=== PATIENT | male | born 1950 | race Hispanic/Latino ===

== ENCOUNTER 2019-11-28 15:02 | Observation (INO) | payer MEDICARE, BC ==
[~2019-11-28] VITALS: Ht 175.3 cm; Wt 88.5 kg
--- OUTSIDE RECORDS SUMMARY | 2019-11-28 15:04 | XMS REPORT ---
Author Author [facility] Address Unknown Phone Unavailable Care Team Providers Care Technology Program Manager Name Role Phone Unavailable Unavailable Payers Payer Name Policy Type Policy Number Effective Date Expiration Date Problems This patient has no known problems. Allergies, Adverse Reactions, Alerts This patient has no known allergies or adverse reactions. Medications This patient has no known medications.
[2019-11-28] MEDS ORDERED: ASPIRIN 81 MG CHEW TAB PO ONE (16:00)
--- NOTE | 2019-11-28 16:55 | Diagnostic Imaging Report ---
CT BRAIN WO HISTORY: Dizziness COMPARISON: None. Technique: Noncontrast axial scans were obtained from skull base to the vertex. Coronal and sagittal reconstructions obtained from the axial data. One or more of the following dose reduction techniques were used: Automated exposure control, adjustment of the mA and/or kV according to patient size, and/or utilization of iterative reconstruction technique. DISCUSSION: Scalp/Skull: Unremarkable. Brain sulci: Mildly prominent. Ventricles: Compensatory dilatation. Extra-axial spaces: No masses or fluid collections. Carotid siphon calcifications are present. Parenchyma: Mild bilateral deep white matter hypodensity is likely chronic microvascular ischemic change. A few punctate cortical calcifications along the right parieto-occipital convexity may be from remote infection or inflammation. Otherwise, no masses, hemorrhage, or large vascular territory acute infarct. Dural sinuses: No abnormal densities. Sellar/Suprasellar region: Intact. Skull base: Intact. Incidental findings: None. IMPRESSION: 1. No acute intracranial abnormalities. 2. Mild supratentorial chronic microvascular ischemic change. Mild generalized cerebral volume loss. 3. A few punctate cortical calcifications along the right parieto-occipital convexity may be from remote infection or inflammation. Signed by: Dr. Jamie Jacobs M.D. on 11/28/2019 4:52 PM
--- NOTE | 2019-11-28 17:08 | Diagnostic Imaging Report ---
EXAMINATION: CHEST SINGLE (PORTABLE) INDICATION: Near syncope COMPARISON: None FINDINGS: LINES/TUBES:None LUNGS:The lungs are well-inflated. No focal consolidation or pulmonary edema. PLEURA:No pleural effusion or pneumothorax. MEDIASTINUM:The cardiomediastinal silhouette appears normal in size and shape. Atherosclerotic calcifications of the thoracic aorta. BONES/SOFT TISSUES:No acute osseous injury. Sternotomy wires intact. ABDOMEN:No free air. IMPRESSION: No focal pneumonia or pulmonary edema. Signed by: Teressa Herrera MD on 11/28/2019 5:06 PM
[2019-11-28 17:09] LABS: BASOPHILS % 0.3 % (0.0-1.0); EOSINOPHILS # (AUTO) 0.1 (0.0-0.4); HEMATOCRIT 42.8 % (38.2-49.6); HEMOGLOBIN 14.1 g/dL (14.0-18.0); LYMPHOCYTES # (AUTO) 1.6 (1.0-3.2); MEAN CORPUSCULAR HEMOGLOBIN 28.1 pg (28-32); MEAN CORPUSCULAR HGB CONC 32.9 g/dL (31-35); MEAN CORPUSCULAR VOLUME 85.3 fL (81-99); MONOCYTES # (AUTO) 0.7 (0.2-0.8); MONOCYTES % 8.1 % (4.4-11.3); NEUTROPHILS # (AUTO) 6.2 (2.1-6.9); NEUTROPHILS % 72.3 % (38.7-80.0); PLATELET COUNT 187 x10e3/uL (140-360); RED BLOOD COUNT 5.02 x10e6/uL (4.3-5.7); RED CELL DISTRIBUTION WIDTH 13.7 % (11.7-14.4)
[2019-11-28 17:28] LABS: ALANINE AMINOTRANSFERASE 26 IU/L (0-55); ALBUMIN/GLOBULIN RATIO 1.4 (0.8-2.0); ALKALINE PHOSPHATASE 101 IU/L (40-150); ANION GAP 14.8 mmol/L (8-16); BLOOD UREA NITROGEN 15 mg/dL (7-26); BUN/CREATININE RATIO 14 (6-25); CALCIUM 9.4 mg/dL (8.4-10.2); CARBON DIOXIDE 22 mmol/L (22-29); CHLORIDE 104 mmol/L (98-107); CREATINE KINASE 221 IU/L (30-200); CREATININE, SERUM 1.09 mg/dL (0.72-1.25); EST GLOMERULAR FILTRATION RATE > 60 ML/MIN (60-); GLUCOSE 98 mg/dL (74-118); POTASSIUM 3.8 mmol/L (3.5-5.1); SODIUM 137 mmol/L (136-145)
[2019-11-28 17:34] LABS: INR 0.97; PROTHROMBIN TIME 13.4 seconds (11.9-14.5)
[2019-11-28 17:35] LABS: PARTIAL THROMBOPLASTIN TIME 31.5 seconds (23.8-35.5)
[2019-11-28 17:48] LABS: THYROID STIMULATING HORMONE 1.715 uIU/mL (0.350-4.940)
[2019-11-28] MEDS ORDERED: ONDANSETRON HCL INJ 2MG/ML 2ML 2 MG/ML VIAL IV PRN (18:45)
--- NOTE | 2019-11-28 19:04 | NUR ---
report given to Good PAULINO
--- NOTE | 2019-11-28 19:06 | NUR ---
report given to Sterling CUELLAR
[2019-11-28] MEDS ORDERED: LEVOTHYROXINE50 MCG PO (20:34)
[2019-11-28] MEDS ORDERED: FLUTICASONE PRO16 GM (20:34)
[2019-11-28] MEDS ORDERED: ATORVASTATIN CA20 MG PO (20:34)
[2019-11-28 21:38] VITALS: BP 145/98
[2019-11-28 21:58] VITALS: BP 145/98
--- NOTE | 2019-11-28 22:30 | NUR ---
pt check seen during hourly rounding nauseated and vomiting in trash can next to bed, MD GROVE notified orders given
--- NOTE | 2019-11-28 22:52 | NUR ---
telemetry reporting patient tachy 190's RVR, patient seen sitting in chair,advised me that he just was walking in room, denies chest pain, stat EKG ordered, MD will be notified when EKG results given
--- NOTE | 2019-11-28 23:04 | NUR ---
rapid response called for SVT HR 190's, EKG completed at bedside
[2019-11-28] MEDS: ADENOSINE 6 MG/2 ML VIAL IV ONE ×2 (23:12→23:23)
[2019-11-28] MEDS ORDERED: SODIUM CHLORIDE 0.9% 1000ML 1,000 ML ONE (23:12)
[2019-11-28] MEDS ORDERED: DILTIAZEM HCL 5 MG/ML 5 ML VIAL IV STA (23:20)
[2019-11-28] MEDS ORDERED: DILTIAZEM HCL VIAL 5 ML ONE (23:23)
[2019-11-28] MEDS ORDERED: METOPROLOL SUCCINATE 25 MG TAB XL ONE (23:23)
[2019-11-28] MEDS ORDERED: SODIUM CHLORIDE 0.9% 1000ML 1,000 ML IV SCH (23:30)
[2019-11-28] MEDS ORDERED: METOPROLOL TARTRATE 25 MG TAB PO STA (23:36)
[2019-11-28 23:45] VITALS: BP 106/83
--- NOTE | 2019-11-28 23:45 | NUR ---
patient taken to IMCU 188, to continue medication therapy for SVT, taken via gurney by rapid response team, all personal belongings taken with him
[2019-11-29] VITALS (7 sets, daily range): BP systolic 99–136; BP diastolic 73–89
--- NOTE | 2019-11-29 01:01 | NUR ---
received patient from RR team @ 2330, appears comfortable, denies pain/CP, remains 99% on RA, SR-HR 88, BP 106/83, RR 16. will hold off on amio drip for now & notify Dr. Bowser in am. Pt at bedside-oriented pt to room, fall precautions in place, advised and educated to stay in bed and call for help. cardiac markers drawn. all telemetry alarms checked and parameters verified. will continue to monitor patient closely.
[2019-11-29] MEDS: ADENOSINE 6 MG/2 ML VIAL IV ONE ×2 (01:19→01:20)
[2019-11-29] MEDS: ASPIRIN 81 MG CHEW TAB PO ONE ×2 (01:20→01:36)
[2019-11-29 01:23] LABS: CREATINE KINASE MB 1.9 ng/mL (0-5.0)
[2019-11-29 06:20] LABS: BASOPHILS # (AUTO) 0.1 (0.0-0.1); BASOPHILS % 0.6 % (0.0-1.0); EOSINOPHILS # (AUTO) 0.2 (0.0-0.4); EOSINOPHILS % 1.9 % (0.0-6.0); HEMOGLOBIN 13.6 g/dL (14.0-18.0); LYMPHOCYTES # (AUTO) 2.3 (1.0-3.2); LYMPHOCYTES % 29.9 % (18.0-39.1); MEAN CORPUSCULAR HEMOGLOBIN 28.1 pg (28-32); MEAN CORPUSCULAR HGB CONC 33.2 g/dL (31-35); MEAN CORPUSCULAR VOLUME 84.7 fL (81-99); MONOCYTES # (AUTO) 0.9 (0.2-0.8); MONOCYTES % 11.1 % (4.4-11.3); NEUTROPHILS # (AUTO) 4.4 (2.1-6.9); NEUTROPHILS % 56.2 % (38.7-80.0); PLATELET COUNT 182 x10e3/uL (140-360); RED BLOOD COUNT 4.84 x10e6/uL (4.3-5.7); RED CELL DISTRIBUTION WIDTH 13.7 % (11.7-14.4)
[2019-11-29 06:53] LABS: CREATINE KINASE MB 2.1 ng/mL (0-5.0)
[2019-11-29 07:19] LABS: ALANINE AMINOTRANSFERASE 22 IU/L (0-55); ALBUMIN 3.4 g/dL (3.5-5.0); ALBUMIN/GLOBULIN RATIO 1.3 (0.8-2.0); ALKALINE PHOSPHATASE 85 IU/L (40-150); ANION GAP 13.7 mmol/L (8-16); BLOOD UREA NITROGEN 17 mg/dL (7-26); BUN/CREATININE RATIO 17 (6-25); CALCIUM 8.7 mg/dL (8.4-10.2); CARBON DIOXIDE 21 mmol/L (22-29); CHLORIDE 109 mmol/L (98-107); CHOL/HDL RATIO 3.5 (3.9-4.7); CHOLESTEROL 129 MD/DL (0-199); EST GLOMERULAR FILTRATION RATE > 60 ML/MIN (60-); GLUCOSE 99 mg/dL (74-118); HDL CHOLESTEROL 37 MG/DL (40-60); LDL CHOLESTEROL 69 MG/DL (60-130); POTASSIUM 3.7 mmol/L (3.5-5.1); SODIUM 140 mmol/L (136-145); TRIGLYCERIDES 113 MG/DL (0-149)
--- NOTE | 2019-11-29 07:35 | NUR ---
consult called to Dr. Perez, awaiting return call
[2019-11-29] MEDS: ASPIRIN 81 MG ENTERIC COATED PO SCH (07:57)
[2019-11-29] MEDS ORDERED: ONDANSETRON HCL 4 MG ORAL DISINTEGRATING TAB PO PRN (08:15)
[2019-11-29] MEDS: METOPROLOL TARTRATE 25 MG TAB PO SCH ×2 (09:23→16:38)
[2019-11-29 12:20] LABS: CREATINE KINASE MB 2.4 ng/mL (0-5.0)
[2019-11-29] MEDS ORDERED: FLUTICASONE PROPIONATE NASAL SPRAY NS PRN (12:45)
[2019-11-29] MEDS: APIXABAN 5 MG TABLET PO SCH (16:38)
--- NOTE | 2019-11-29 18:05 | Consultation ---
DATE OF CONSULTATION: Cardiology Consult HISTORY OF PRESENT ILLNESS: Mr. Homar Sommer is a 69-year-old male with primary history of aortic valve disease, status post TAVR with bioprosthetic valve replacement; hypothyroidism, admitted complaining of palpitations associated with dizziness and near syncope that started after he did an hour of stationary bike exercise about 3 hours prior to admission. He reports his syncopal episodes were intermittent. The patient denies of any chest pain or shortness of breath. PAST MEDICAL HISTORY: Aortic valve disease, status post TAVR with bioprosthetic valve; hypothyroidism. FAMILY HISTORY: Parents are . Mom of heart failure or heart causes. Dad of small cell carcinoma or cancer. ALLERGIES: NOVOCAINE. CURRENT MEDICATIONS: Atorvastatin, fluticasone, levothyroxine. PHYSICAL EXAMINATION: VITAL SIGNS: Include blood pressure of 119/80, temperature is 98.1, pulse of 77, respiration rate is 17, SpO2 of 97% on room air. GENERAL: The patient is well developed, well nourished, in no acute respiratory distress. SKIN: Normal in appearance, texture, and temperature, warm and dry. HEENT: The patient's cranium is normocephalic and atraumatic. Pupils are equally round and reactive to light and accommodation. Sclerae are nonicteric. Ears are normal. Throat is clear. NECK: Supple. Full range of motion. No cervical lymphadenopathy. No thyromegaly. No JVD. RESPIRATORY: Normal respiratory effort. Lungs are clear to auscultation bilaterally. No wheezing, rhonchi, rales, or rubs. CARDIOVASCULAR: S1 and S2 audible. Regular rate and rhythm. No significant murmur heard. GASTROINTESTINAL: Soft, nontender, nondistended. Bowel sounds are present. EXTREMITIES: No cyanosis, no clubbing, and no edema. NEUROVASCULAR: Motor is intact. Pulses are palpable, 2+ throughout. LABORATORY DATA: Troponins negative. Troponin first one is 0.008, second one is 0.007, and third is 0.030. IMPRESSION AND PLAN: This is a 69-year-old with recurrent episodes of supraventricular tachycardia associated with dizziness and near syncope. IMPRESSION: Supraventricular tachycardia. PLAN: 1. Metoprolol 25 mg b.i.d. 2. Ablations were discussed with the patient and family, and we will consult EP. 3. Continue to monitor in Telemetry. 4. Further recommendation will follow according to clinical course. Thank you for this consultation. We will continue to follow. Dictated by Yuridia Mcguire, OPERATIONS ASSOCIATE MD JATIN Christopher/SHAKIR /[id number]
--- NOTE | 2019-11-29 19:28 | NUR ---
Dr. Po dos santos at bedside. R lateral CT removed at bedside by Dr. Fontenot, Heimlich drainage valve placed on right CT. Mild drainage seeping from under dressing, Dr. Fontenot at bedside & aware. Pt states he is comfortable, reports mild pain while coughing. CXR okay according to Dr. Fontenot. Dressing C/D/I, will continue to monitor drainage and repeat CXR. Addendum: 11/30/19 at 1636 by Raegan Solis RN INCORRECT PATIENT RN MADE AWARE Addendum: 11/30/19 at 1925 by Divya Washington RN *NOTE DOCUMENTED UNDER INCORRECT PATIENT*
--- NOTE | 2019-11-29 19:45 | Consultation ---
DATE OF CONSULTATION: 11/29/2019 Initial EP Consultation REASON FOR CONSULTATION: Supraventricular tachycardia. HISTORY OF PRESENT ILLNESS: Mr. Sommer is a 69-year-old gentleman with a history of aortic valve replacement as well as paroxysmal atrial fibrillation who presents to the hospital after having palpitations. The patient is noted to having supraventricular tachycardia with heart rate approximately in 180s. He received adenosine x2 and converted to sinus rhythm. The patient reports occasional palpitations in the past, but never pain and syncope. These events were unrelenting and so he presented to the emergency department. He currently feels well without any problems. REVIEW OF SYSTEMS: He denies having fevers, chills, lightheadedness, dizziness, discharge from the eyes, nose, mouth, swollen lymph node in the neck or groin, chest pains, palpitations, shortness of breath, coughing, abdominal pain, nausea, vomiting, dysuria, hematuria, swelling in the joints, joint pain, numbness, tingling, weakness, swelling in the legs or arms. No rashes or skin ulcers. No depression or anxiety. PAST MEDICAL HISTORY: As noted above. PAST SURGICAL HISTORY: Aortic valve replacement. FAMILY HISTORY: No significant family history of early cardiac or arrhythmias. SOCIAL HISTORY: The patient does not smoke any cigarettes, drink alcohol, or use any illicit drugs. MEDICATIONS: Metoprolol tartrate 25 mg p.o. b.i.d., aspirin, synthroid. ALLERGIES: NO KNOWN DRUG ALLERGIES. PHYSICAL EXAMINATION: VITAL SIGNS: Temperature is 98.1, heart rate is 77 sinus rhythm, respiratory rate 12, and blood pressure 119/80. GENERAL: No acute distress. Alert, awake, and oriented x3. HEENT: Normocephalic and atraumatic. Pupils are equal, round, and reactive to light. LYMPH: No supraclavicular or submandibular lymphadenopathy appreciated. CVS: S1 and S2. Regular rate and rhythm. RESPIRATORY: Good air entry globally. No wheezing. GI: Abdomen is soft and nontender. : No bladder fullness. No CVA tenderness. MUSCULOSKELETAL: No effusions or erythema noted in the knees or elbows bilaterally. NEUROLOGIC: 5/5 strength in all extremities bilaterally. No focal deficits. EXTREMITIES: No edema in lower extremities or upper extremities bilaterally. SKIN: No bruising or ulcers noted. PSYCH: Mood is normal. Answers questions appropriately. LABORATORY DATA: Creatinine is 1. Hemoglobin is 13.6, platelets 182. Transthoracic echocardiogram performed on 11/29/2019 demonstrates normal left ventricular ejection fraction of 55% to 60% with adequate valve assessment. ASSESSMENT AND PLAN: Mr. Sommer is a 69-year-old man with a history of aortic valve replacement and paroxysmal atrial fibrillation who presents to the hospital with palpitations noted to have supraventricular tachycardia which terminated with adenosine. 1. Supraventricular tachycardia. 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 However, it is difficult to definitively diagnose without an electrophysiology study. I have discussed with the patient the indications, risks, benefits, and alternatives to electrophysiology study. I have described the procedure aspect as well. He is agreeable and we can follow up as an outpatient to further discuss as well as arrange this procedure. 2. Paroxsymal atrial fibrillation. The patient has CHADS-VASc score of at least 2 and he would benefit from having anticoagulation for stroke prevention. We can have further discussions concerning the pathophysiology of atrial fibrillation as well as hospital treatment modalities with the patient on an outpatient basis. However, for now, given his elevated CHADS-VASc score, we will start the patient on Eliquis 5 mg p.o. b.i.d. This plan has been discussed with the patient and Dr. Bowser who are agreeable. Thank you very much for this consultation. Please feel free to call if you have any questions. DO GIO PIKE/SHAKIR /[id number] SAULO
--- NOTE | 2019-11-29 20:31 | History and Physical ---
PRIMARY CARE PHYSICIAN: Randell Archuleta CHIEF COMPLAINT: Dizziness and blacking out. HISTORY OF PRESENT ILLNESS: This is a 69-year-old male with past medical history of high cholesterol, hypothyroidism, and AVR done last year, presented with complaints of dizziness after exercising for about an hour. He reports feeling dizzy and blackouts progressively getting worse, more frequent, lasting about 15 seconds. He called his chipper feeder, Dr. Bowser, but decided to present to the ER for further evaluation when blackouts started occurring every 15 minutes. He denies any chest pain, shortness of breath, nausea, vomiting, change in mentation, pain, any seizure-like activity or focal neuro deficit. He reports shortness of breath with lightheadedness. PAST MEDICAL HISTORY: 1. Hyperlipidemia. 2. Hypothyroidism. 3. Hypertension. PAST SURGICAL HISTORY: 1. AVR. 2. Appendectomy. 3. Nose surgery. FAMILY MEDICAL HISTORY: He reports mother of heart attack and father of lung cancer due to smoking. SOCIAL HISTORY: He denies tobacco or illicit drug use, but reports he drinks alcohol occasionally. ALLERGIES: NOVOCAINE. REVIEW OF SYSTEMS: GENERAL: Fatigue. HEENT: No head trauma. LUNGS: No shortness of breath or cough. CARDIOVASCULAR: Palpitation and blacking out. GI: No nausea or vomiting. NEUROLOGIC: No change in mentation. MUSCULOSKELETAL: No weakness. SKIN: No rash. PHYSICAL EXAMINATION: VITAL SIGNS: Temperature 98.1, pulse is 77, respirations 17, blood pressure 119/80, pulse ox is 97% on room air. GENERAL: No acute distress. HEENT: Normocephalic, atraumatic. NECK: Supple. LUNGS: Clear to auscultation. CARDIOVASCULAR: Regular rate and rhythm. GI: Soft and nontender. NEUROLOGIC: Alert, awake, oriented x3. MUSCULOSKELETAL: Moves all extremities. SKIN: Dry and intact. PSYCH: Calm. LABORATORY DATA: WBC 8.65, hemoglobin 14.1, hematocrit 42.8, platelets 187. Sodium 137, potassium 3.8, CO2 of 22, anion gap 14.8. BUN is 15, creatinine 1.09, estimated GFR is greater than 60, magnesium 2.0. AST is 25, ALT 26, CK 221. Troponin 0.008, 0.007, 0.030. Albumin 4.0, triglycerides 113, cholesterol 129, LDL 69, HDL 37. TSH 1.715. Coagulation; PT 13.4, INR 0.97, APTT 31.5. IMAGING: Chest x-ray, no focal pneumonia or pulmonary edema. CT brain shows no acute intracranial abnormalities. IMPRESSION: 1. Near syncope. EKG, normal sinus rhythm. He had episodes of tachycardia. He was given Cardizem overnight. He is started on metoprolol per Cardiology. Troponin x4 is negative, chest x-ray unremarkable. Continue to monitor on tele and EP has been consulted. 2. High cholesterol. Continue on statin. 3. Hypothyroidism. Resume home levothyroxine. TSH is within normal limits. 4. Deep venous thrombosis prophylaxis. SCDs for now. The patient is ambulatory. PLAN: Plan is to continue metoprolol and monitor on tele. Further recommendations per Cardiology and EP. Dictated by LAURE Escamilla Molina Balbuena MD MY/MODL /[id number]
[2019-11-29 20:45] LABS: CREATINE KINASE MB 2.2 ng/mL (0-5.0)
[2019-11-29] MEDS ORDERED: ATORVASTATIN 20 MG TAB PO SCH (21:00)
[2019-11-30 00:48] VITALS: BP 120/81
[2019-11-30 04:07] VITALS: BP 109/76
[2019-11-30] MEDS ORDERED: LEVOTHYROXINE SODIUM 50 MCG TAB PO SCH (07:30)
[2019-11-30 08:00] VITALS: BP 128/75
[2019-11-30] MEDS: APIXABAN 5 MG TABLET PO SCH (08:04)
[2019-11-30] MEDS: ASPIRIN 81 MG ENTERIC COATED PO SCH (08:04)
[2019-11-30] MEDS: METOPROLOL TARTRATE 25 MG TAB PO SCH (08:05)
[2019-11-30 08:11] VITALS: BP 128/75
[2019-11-30 12:00] VITALS: BP 117/75
[2019-11-30 15:00] VITALS: BP 116/83
[2019-11-30] MEDS ORDERED: METOPROLOL TART25 MG PO (15:33)
[2019-11-30] MEDS ORDERED: ELIQUIS5 MG PO (15:34)
--- NOTE | 2019-11-30 16:15 | NUR ---
PATIENT DISCHARGED AT THIS TIME RX GIVEN EDUCATION, AND F/U INSTRUCTIONS IV DC'C SECURED WITH 4X4 GAUZED AND TAPE. NO QUESTIONS VERBALIZED AT THIS TIME
--- NOTE | 2019-12-01 06:28 | Discharge Summary ---
PRIMARY CARE PHYSICIAN: Dr. Randell Archuleta. FINAL DIAGNOSES: 1. Near syncope. 2. New onset of atrial fibrillation. 3. Hypertension. 4. High cholesterol. 5. Hypothyroidism. CONSULTANTS: 1. Dr. Hebert, application penetration tester. 2. Dr. Perez with EP. PROCEDURES: None. HISTORY: Per HPI. HOSPITAL COURSE: This is a 69-year-old male with past medical history of high cholesterol, hypothyroidism, hypertension and AVR, presented to the ER with complaints of palpitations and dizziness with episodes of blacking out. He was noted to have new onset of atrial fibrillation with this episodes. He was given Cardizem and started on beta blockers to control rate. He was monitored overnight on metoprolol, now sinus rhythm. He was started on Eliquis and EP had been consulted. We will follow up as outpatient for further ablation therapy. PHYSICAL EXAMINATION: VITAL SIGNS: Temperature 98.1, pulse is 77, respirations 17, blood pressure 119/80, pulse ox is 97% on room air. GENERAL: No acute distress. HEENT: Normocephalic, atraumatic. NECK: Supple. LUNGS: Clear to auscultation. CARDIOVASCULAR: Regular rate and rhythm. GI: Soft and nontender. NEUROLOGIC: Alert, awake, and oriented x3. MUSCULOSKELETAL: Moves all extremities. SKIN: Dry. PSYCH: Calm. CONDITION AT DISCHARGE: Improved and stable, discontinue medications, please see medication reconciliation list, started on metoprolol and Eliquis for CVA prophylaxis. FOLLOWUP: Follow up with PCP, Cardiology and EP doctor in one week per appointment. Total DC time is 32 minutes. Dictated by LAURE Escamilla Molina Balbuena MD MY/MODL /[id number] cc: Randell Archuleta
== END 2019-11-30 16:15 | disposition home or self-care (01) ==
LOC: ER 15:02 → ERHOLD 19:07 → MED/SURG3 21:08 → IMCU 23:40
PROVIDERS: ADMIT Internal Medicine; ATTEND Internal Medicine
DX: I47.1 Supraventricular tachycardia (principal); I48.91 Unspecified atrial fibrillation; I10 Essential (primary) hypertension; E03.9 Hypothyroidism, unspecified; E78.00 Pure hypercholesterolemia, unspecified; Z79.01 Long term (current) use of anticoagulants; Z95.2 Presence of prosthetic heart valve; Z82.49 Family history of ischemic heart disease and other diseases of the circulatory system; I48.0 Paroxysmal atrial fibrillation
CPT/HCPCS: 36415; 70450; 71045; 80053 ×2; 80061; 82550 ×2; 82553 ×2; 83735; 84443; 84484 ×2; 85025 ×2; 85610; 85730; 93005; 93306; 99284; G0378 ×3; J0153; J7030